=== PATIENT | female | born 1995 | race African-American/Black ===

== ENCOUNTER 2017-09-01 18:39 | Emergency (ER) | payer SELFPAY ==
[~2017-09-01] VITALS: Ht 170.2 cm; Wt 59.0 kg
[2017-09-01 18:51] VITALS: BP 108/71
[2017-09-01] MEDS ORDERED: NKM (18:55)
[2017-09-01] MEDS ORDERED: IBUPROFEN600 MG ORAL (19:14)
[2017-09-01] MEDS ORDERED: PROMETHAZINE-D118 ML ORAL (19:14)
[2017-09-01 19:18] VITALS: BP 108/71
--- NOTE | 2017-09-01 20:14 | Emergency Room Report ---
History of Present Illness General Chief Complaint: Sore Throat Source: Patient Present Illness HPI Patient is a 21-year-old female presenting for sore throat, and cough since yesterday. Pain is an 8/10 dull ache to the mid chest and occurs with coughing only. She denies any known sick contacts or recent travel. She denies other symptoms including nausea, vomiting, headache, myalgia, fatigue, fever, neck pain or stiffness Allergies: Coded Allergies: No Known Allergies (Unverified , 09/01/17) Patient History Past Medical History: see triage record Pertinent Family History: none Last Menstrual Period: 09/01/2017 Reviewed Nursing Documentation: PMH: Agreed, PSxH: Agreed Nursing Documentation-PMH Past Medical History: No Stated History Review of Systems All Other Systems: negative except mentioned in HPI Physical Exam Vital Signs Date Time Temp Pulse Resp B/P (MAP) Pulse Ox O2 Delivery O2 Flow Rate FiO2 09/01/17 18:51 98.8 70 16 108/71 98 Room Air Sp02 EP Interpretation: reviewed, normal General Appearance: no apparent distress, alert, GCS 15, non-toxic Head: normocephalic, atraumatic Eyes: bilateral eye normal inspection, bilateral eye PERRL ENT: normal voice, TMs + canals normal, uvula midline, nasal congestion, pharyngeal erythema Neck: full range of motion, supple/symm/no masses Respiratory: chest non-tender, lungs clear, normal breath sounds, no wheezing, speaking full sentences Cardiovascular #1: regular rate, rhythm, no edema Musculoskeletal: back normal, gait/station normal, normal range of motion, non- tender Neurologic: alert, oriented x3, responsive, motor strength/tone normal, sensory intact, speech normal Psychiatric: judgement/insight normal, memory normal, mood/affect normal, no suicidal/homicidal ideation Skin: normal color, no rash, warm/dry, well hydrated Lymphatic: no adenopathy Medical Decision Making PA Attestation Dr. Holland is my supervising physician. Patient management was discussed with my supervising physician Diagnostic Impression: Primary Impression: Pharyngitis, acute Qualified Codes: J02.9 - Acute pharyngitis, unspecified ER Course Patient is a 21-year-old female presenting for sore throat, and cough since yesterday. Differential diagnosis include but not limited to pharyngitis, sinusitis, AOM, bronchitis, PNA Physical exam: Vitals within normal limits. Afebrile. No apparent distress HEENT exam: There is pharyngeal erythema. Uvula midline. Moist mucous membranes. There is no cervical lymphadenopathy. Lungs are clear to auscultation bilaterally Skin is warm and dry. No rash The patient will be discharged home with a prescription for motrin and cough medication and is given ER precautions. Patient will followup with primary care Last Vital Signs Date Time Temp Pulse Resp B/P (MAP) Pulse Ox O2 Delivery O2 Flow Rate FiO2 09/01/17 19:18 98.8 16 108/71 98 Room Air 09/01/17 18:51 70 Status: improved Disposition: HOME, SELF-CARE Condition: Improved Scripts D-Methorphan Hb/Prometh Hcl* (PROMETHAZINE-DM SYRUP*) 118 Ml Syrup 5 ML ORAL Q6H Y for For Cough, #118 ML 0 Refills Prov: JULIAN EDWARDS.A. 09/01/17 Ibuprofen* (MOTRIN*) 600 Mg Tablet 600 MG ORAL Q8H Y for For Pain, #30 TAB 0 Refills Prov: JULIAN EDWARDS P.A. 09/01/17 Referrals: NOT CHOSEN [facility]/MD,REFERRING (PCP) Patient Instructions: Sore Throat Additional Instructions: I discussed my findings with the patient. All questions and concerns have been answered. Treatment and medication compliance have been addressed. I advised the patient that they need to follow up with PMD in 3-5 days. Return to ED if pain remains or worsens, cough worsens or remains, you notice blood in your sputum, you notice wheezing, you experience a fever, or if needed for any reason. Patient verbalized understanding of discharge instructions. JULIAN EDWARDS Sep 01, 2017 20:14
== END 2017-09-01 20:03 | disposition home or self-care (01) ==
LOC: EMR 19:05
DX: J02.9 Acute pharyngitis, unspecified (principal)
CPT/HCPCS: 99283